=== PATIENT | female | born 1980 | race Caucasian/White ===

== ENCOUNTER 2016-09-05 22:55 | Outpatient (CLI) | payer MEDICAID ==
[~2016-09-05] VITALS: Ht 147.3 cm; Wt 85.5 kg
[~2016-09-05 22:55] MED LIST: ACET325T33 PO; CYCL-319 PO; HYDR-3498 PO; METH500T PO; NAPR-260 PO; NAPR-688 PO
[2016-09-05 23:10] VITALS: BP 135/65; PULSE 68; RESP 22
[2016-09-05] MEDS ORDERED: LACTATED RINGER'S 1,000 ML IV SCH (23:15)
[2016-09-05 23:19] VITALS: Ht 147.3 cm; Wt 85.5 kg
[2016-09-05] MEDS ORDERED: ACET500T98 PO (23:19)
[2016-09-05] MEDS ORDERED: CALC600T5 PO (23:19)
[2016-09-05] MEDS ORDERED: PREN1TAB79 PO (23:19)
[2016-09-05] MEDS ORDERED: LACTATED RINGER'S 1,000 ML IV ONE (23:30)
[2016-09-05] MEDS ORDERED: BUTORPHANOL 2 MG INJ IV ONE (23:30)
--- NOTE | 2016-09-05 23:47 | PN ---
Triage Information Date/Time 09/05/2016 Weeks of Gestation 38+ : 4 Para: 3 Diabetes: none Hypertention: none Additional information 36-year-old female complaining of L shoulder pain 2 days which apparently was being relieved by Tylenol Pain spreads itself to right upper torso Denies shortness of breath and palpitations Objective See the admitting nursing Heart Rate: 150's Heart Rate Comments Reactive Contractions: None Exam %50/fingertip/-3 Results/Medications Medications Current Medications Lactated Ringer's 1,000 ml @ 125 mls/hr Q8H IV ; Start 09/05/16 at 23:15 Lactated Ringer's (Lr) 1,000 ml @ 1,000 mls/hr Q1H ONCE IV ; Start 09/05/16 at 23:30; Stop 09/06/16 at 00:29 Imaging Results Biophysical profile down results uncertain at this point Assessment/Plan Left upper shoulder pain possibly because of muscle cramps 38 weeks gestation Not in labor If has relief of pain after Stadol injection we will follow as outpatient ANTONI CUNNINGHAM MD Sep 05, 2016 23:47
[2016-09-06 00:02] LABS: ADD SCAN DIFF NO
[2016-09-06 00:05] LABS: BASOPHILS % 0.3 % (0.0-2.0); EOSINOPHILS # 0.1 10^3/ul (0.0-0.5); EOSINOPHILS % 0.7 % (0.0-7.0); HEMATOCRIT 34.3 % (37.0-47.0); HEMOGLOBIN 11.7 g/dl (12.0-16.0); LYMPHOCYTES # 1.3 10^3/ul (0.8-2.9); MEAN CORPUSCULAR HEMOGLOBIN 30.7 pg (29.0-33.0); MEAN CORPUSCULAR HGB CONC 34.1 g/dl (32.0-37.0); MEAN PLATELET VOLUME 12.6 fl (7.4-10.4); MONOCYTE # 0.4 10^3/ul (0.3-0.9); MONOCYTES % 5.6 % (0.0-11.0); NEUTROPHIL # 5.6 10^3/ul (1.6-7.5); NEUTROPHILS % 75.7 % (39.0-77.0); PLATELET COUNT 176 10^3/UL (140-415); RED BLOOD COUNT 3.81 10^6/ul (4.20-5.40); WHITE BLOOD COUNT 7.4 10^3/ul (4.8-10.8)
--- NOTE | 2016-09-06 01:07 | RADRPT ---
PROCEDURE: ULTRASOUND BIOPHYSICAL PROFILE CLINICAL INDICATION: 36-year-old female with contractions for viability. TECHNIQUE: Multiple sonographic images were obtained in order to perform a biophysical profile The images were reviewed on a PACS workstation. COMPARISON: None. FINDINGS: There is a single viable intrauterine gestation. There is a breech presentation. Cardiac activity i s present at 166 beats per minute. The placenta is fundal. The results of the biophysical profile a re as follows: breathing movement = 2/2 Gross body movement = 2/2 tone = 2/2 Qualitative amniotic fluid volume = 2/2 Amniotic fluid index equals 11.9 cm. This yields a biophysical profile score of 8/8. IMPRESSION: Biophysical profile score is 8/8. .Bao Howell MD, Date Time Electronically viewed and signed by .Bao Howell MD, on 09/06/2016 01:07 .Jose
== END 2016-09-06 07:17 | disposition home or self-care (01) ==
LOC: OBT 22:55 → L-D 22:59 → OBT 09-06 07:17
PROVIDERS: ATTEND Obstetrics & Gynecology
DX: O26.893 Other specified pregnancy related conditions, third trimester (principal); Z3A.30 30 weeks gestation of pregnancy; M25.512 Pain in left shoulder
CPT/HCPCS: 36415; 76818; 85025; 96361; 96374; J0595; J7120; Z7500; G0463

== ENCOUNTER 2016-09-06 07:21 | Emergency (ER) | END 2016-09-06 10:23 | disposition left against medical advice (07) | DX: O99.89 Other specified diseases and conditions complicating pregnancy, childbirth and the puerperium (principal); M25.512 Pain in left shoulder; R07.89 Other chest pain; Z3A.38 38 weeks gestation of pregnancy | CPT/HCPCS: 93005; 93970; Z7502; Z7610 ==

== ENCOUNTER 2016-09-16 09:31 | Inpatient (IN) | payer MEDICAID ==
[~2016-09-16] VITALS: Ht 144.8 cm; Wt 83.5 kg
[~2016-09-16 09:31] MED LIST changes: -ACET325T33 PO; +ACET500T98 PO; +CALC600T5 PO; -CYCL-319 PO; -HYDR-3498 PO; -METH500T PO; -NAPR-260 PO; -NAPR-688 PO; +PREN1TAB79 PO
[2016-09-16 10:03] VITALS: Ht 144.8 cm; Wt 83.5 kg
[2016-09-16 10:04] VITALS: BP 111/58; PULSE 72; RESP 18
[2016-09-16] MEDS ORDERED: OXYTOCIN 30 UNITS/LR 500 ML IV PRN (11:30)
[2016-09-16] MEDS ORDERED: METHYLERGONOVINE 0.2 MG INJ IM PRN (11:30)
[2016-09-16] MEDS ORDERED: MINERAL OIL LIGHT 10 ML VIAL TOP PRN (11:30)
[2016-09-16] MEDS ORDERED: OXYTOCIN 30 UNITS/LR 500 ML IV SCH ×3 (11:30)
[2016-09-16] MEDS ORDERED: BUTORPHANOL 2 MG INJ IV PRN ×2 (11:30)
[2016-09-16] MEDS ORDERED: AMPICILLIN 2 GM/NS (PMX) 100 ML IVPB ONE (11:30)
[2016-09-16] MEDS ORDERED: LIDOCAINE 1% (MPF) 30 ML INJ INJ PRN (11:30)
[2016-09-16] MEDS ORDERED: IBUPROFEN 600 MG TAB PO PRN (11:30)
[2016-09-16] MEDS ORDERED: MISOPROSTOL 200 MCG TAB PR PRN (11:30)
[2016-09-16] MEDS ORDERED: CARBOPROST 250 MCG INJ IM PRN (11:30)
[2016-09-16] MEDS ORDERED: LACTATED RINGER'S 1,000 ML IV PRN (12:00)
--- NOTE | 2016-09-16 12:01 | RADRPT ---
PROCEDURE: OB ultrasound CLINICAL INDICATION: Spontaneous structure membrane TECHNIQUE: Multiple transverse and longitudinal OB images of the pelvis were obtained. The images were reviewed on a high-resolution PACS workstation. COMPARISON: 09/05/2016 FINDINGS: A single live intrauterine is seen. The presentation is vertex. The placenta is grade 2 a nd fundal in location. No evidence of placenta abruption or previa is seen. The heart rate is 146 beats per minute. The amniotic fluid index is 6.7 cm. movement 2 tone 2 breathing 0 Amniotic fluid 2 IMPRESSION: Biophysical profile of 6 out of 8 as no breathing is identified. Close clinical observation a short interval follow-up is suggested. Results were discussed with the patient's nurse Nayana Sagastume at 09/16/2016 12:00:51 PM RPTAT: HPNM Physician Chris Date Time Electronically viewed and signed by Physician Chris on 09/16/2016 12:01 /
[2016-09-16] MEDS: LACTATED RINGER'S 1,000 ML IV SCH ×4 (12:51→22:51)
[2016-09-16 13:02] LABS: BASOPHILS % 0.1 % (0.0-2.0); EOSINOPHILS % 0.5 % (0.0-7.0); HEMATOCRIT 37.1 % (37.0-47.0); HEMOGLOBIN 12.8 g/dl (12.0-16.0); LYMPHOCYTES # 1.2 10^3/ul (0.8-2.9); LYMPHOCYTES % 14.9 % (15.0-51.0); MEAN CORPUSCULAR HGB CONC 34.5 g/dl (32.0-37.0); MEAN CORPUSCULAR VOLUME 89.8 fl (82.0-101.0); MEAN PLATELET VOLUME 12.8 fl (7.4-10.4); MONOCYTE # 0.3 10^3/ul (0.3-0.9); MONOCYTES % 3.7 % (0.0-11.0); NEUTROPHIL # 6.3 10^3/ul (1.6-7.5); NEUTROPHILS % 80.4 % (39.0-77.0); PLATELET COUNT 177 10^3/UL (140-415); RED BLOOD COUNT 4.13 10^6/ul (4.20-5.40); RED CELL DISTRIBUTION WIDTH 14.9 % (11.5-14.5); WHITE BLOOD COUNT 7.8 10^3/ul (4.8-10.8)
[2016-09-16 13:17] LABS: INR 0.88; PROTIME 11.9 Sec (12.2-14.2); PT RATIO 0.9
[2016-09-16 13:18] LABS: PARTIAL THROMBOPLASTIN TIME 29.2 Sec (25.0-35.0)
[2016-09-16] MEDS: AMPICILLIN 1 GM/NS (PMX) 50 ML IVPB SCH ×3 (17:02→20:56)
--- NOTE | 2016-09-16 18:30 | HP ---
Date/Time of Note Date/Time of Note DATE: 09/16/16 TIME: 18:27 OB - History Hx of Present Free Text/Dictation Complaining of spontaneous rupture of membrane at 39 weeks and 6 days Chief Complaint: Spontaneous rupture of membrane and uterine contractions Estimated Due Date: Sep 17, 2016 : 4 Para: 3 Care: Good Care Ultrasounds: Normal mid trimester US Obstetrical Complications: None Medical Complications: None Past Family/Social History * Past Medical, Surgical, Family and Obstetric Histories reviewed from chart. Blood Type: O+ Rubella: immune RPR/VDRL: Negative GBS Status: Unknown HBsAG: Negative OB Admission Exam Vital Signs Vital Signs Vital Signs Date Time Temp Pulse Resp B/P Pulse Ox O2 Delivery O2 Flow Rate FiO2 09/16/16 10:04 98.6 72 18 111/58 Room Air Physical Exam HEENT: WNL Heart: Rhythm Normal Lungs: Clear, Equal Abdomen: WNL Extremities: Normal Reflexes: Normal Cervical Dilatation: 1cm Effacement: 25% Station: -3 Membranes: Ruptured Amniotic Fluid: Clear Heart Rate: 140's Accelerations: Accelerations Present Decelerations: No Decelerations Varibility: Marked Contractions on Admission: >10 Minutes Apart Date/Time Contractions Began: September 16, 2016 at 0200 a.m. Frequency of Contractions: Every 5-10 minute Duration: Over 45 seconds Intensity: Mild Last 72 hours Lab Results CBC & BMP 09/16/16 12:40 OB Assessment/Plan Reason for admission: rupture of membranes Other Assessment: Term gestation Other plan: Augment labor with Pitocin ANTONI CUNNINGHAM MD Sep 16, 2016 18:30
[2016-09-16] MEDS ORDERED: FENTAnyl 2MCG/ML-ROPIV 0.2% 100 ML ONE (21:51)
[2016-09-16] MEDS ORDERED: NALOXONE (0.4 MG/ML) INJ IV PRN (23:00)
[2016-09-16] MEDS ORDERED: FENTAnyl 2MCG/ML-ROPIV 0.2% 100 ML BAG EPI SCH (23:00)
--- NOTE | 2016-09-17 00:07 | LDN ---
Date/Time of Note Date/Time of Note DATE: 09/17/16 TIME: 00:05 Delivery Summary Normal spontaneous vaginal delivery of a viable over intact perineum Weeks of Gestation 39+ Placenta Delivered: Spontaneously, Intact & Complete Meconium: none Episiotomy: No Perineal laceration: 0 Anesthesia type: Epidural Estimated blood loss: 300 Sponge & Needle done & correct: Yes All needle counts correct: Yes Any foreign bodies felt in the: No Problems: Infant Delivery Information Sex Sex: female Apgars 1 Minute: 4 5 Minute: 8 10 Minute: 9 Suctioning Nose & mouth suctioned at ashwini: Yes Delee suction performed: No Umbilical Cord Umbilical cord with: 3 Vessels Cord presentations: no nuchal cord Cord Blood was obtained: Yes Mother & Baby Disposition Disposition Mom & Baby to Maternity; Good: Yes (Mother and baby were recovered in good condition) Mom transferred to: Other (Maternity) Baby to NICU: No ANTONI CUNNINGHAM MD Sep 17, 2016 00:07
[2016-09-17] MEDS: AMPICILLIN 1 GM/NS (PMX) 50 ML IVPB SCH (01:00)
[2016-09-17] MEDS: LACTATED RINGER'S 1,000 ML IV* SCH ×2 (01:51→04:48)
[2016-09-17 02:00] VITALS: BP 115/62; PULSE 70; RESP 20
[2016-09-17] MEDS ORDERED: BENZOCAINE 20% 56 ML SPRAY TOP PRN (02:00)
[2016-09-17] MEDS ORDERED: OXYTOCIN 30 UNITS/LR 500 ML IV PRN (02:00)
[2016-09-17] MEDS ORDERED: DIBUCAINE 1% 30 GM OINT PR PRN (02:00)
[2016-09-17] MEDS ORDERED: MISOPROSTOL 200 MCG TAB PR PRN (02:00)
[2016-09-17] MEDS ORDERED: CARBOPROST 250 MCG INJ IM PRN (02:00)
[2016-09-17] MEDS ORDERED: LANOLIN 7 GM TUBE TOP PRN (02:00)
[2016-09-17] MEDS ORDERED: METHYLERGONOVINE 0.2 MG INJ IM PRN (02:00)
[2016-09-17] MEDS ORDERED: ZOLPIDEM 5 MG TAB PO PRN (02:00)
[2016-09-17] MEDS ORDERED: ACETAMINOPHEN/CODEINE #3 TAB PO PRN ×2 (02:00)
[2016-09-17] MEDS ORDERED: WITCH HAZEL/GLYCERIN PAD PR PRN (02:00)
[2016-09-17 03:30] VITALS: BP 121/63; PULSE 65
[2016-09-17] MEDS: IBUPROFEN 600 MG TAB PO SCH ×3 (05:31→17:59)
[2016-09-17] MEDS: CEPHALEXIN 500 MG CAP PO SCH ×3 (05:31→17:59)
[2016-09-17 08:55] VITALS: BP 111/56; PULSE 59; RESP 18
[2016-09-17] MEDS: MAGNESIUM HYDROXIDE 30ML CUP PO SCH ×2 (09:21→20:53)
[2016-09-17] MEDS: SENNA/DOCUSATE NA (8.6MG/50MG) TAB PO SCH ×2 (09:21→20:53)
[2016-09-17] MEDS ORDERED: LACTATED RINGER'S 1,000 ML IV PRN (12:00)
--- NOTE | 2016-09-17 12:15 | DS ---
Date/Time of Note Date/Time of Note Home next day DATE: 09/17/16 TIME: 12:14 Obstetrical Discharge Record Final Diagnosis Final Diagnosis: Term delivered Other Final Diagnosis Status post vaginal delivery Vaginal Delivery Obstetrical Delivery: Spontaneous Complications Augmentation: Yes Condition on Discharge Physical Assessment Last Vitals: See nurse's notes Voiding: Yes Bowel Movement: Yes Breast: Soft, non-tender, Filling Fundus: Firm Abdomen and Incision: Soft bowel sounds present Episiotomy: Not applicable Calf Tenderness: No Patient Condition: Good ANTONI CUNNINGHAM MD Sep 17, 2016 12:15
[2016-09-17] MEDS ORDERED: IBUP-1542 PO (12:16)
--- NOTE | 2016-09-17 12:16 | PD.PPDC ---
[employer] HEL[employer] Discharge Instruction Provider Information Physician Information 36-year-old female had vaginal delivery Diagnosis Final Diagnosis: Status post vaginal delivery Condition Patient Condition: Good Diet Diet: Resume Regular Diet Activity/Restrictions Activity: Normal Activity May Shower Restrictions: Nothing in the Vagina Return to Work or School: Nov 06, 2016 Follow-up Follow-up with Physician: 4, Week/Weeks (In clinic) Return to clinic for OB Instructions: Breast Tenderness Depression ANTONI CUNNINGHAM MD Sep 17, 2016 12:16
[2016-09-17 12:50] VITALS: BP 117/60; PULSE 57; RESP 17
[2016-09-17 13:49] LABS: BASOPHILS % 0.2 % (0.0-2.0); EOSINOPHILS % 0.5 % (0.0-7.0); HEMOGLOBIN 11.4 g/dl (12.0-16.0); LYMPHOCYTES # 1.1 10^3/ul (0.8-2.9); MEAN CORPUSCULAR HEMOGLOBIN 31.6 pg (29.0-33.0); MEAN CORPUSCULAR HGB CONC 34.5 g/dl (32.0-37.0); MEAN CORPUSCULAR VOLUME 91.4 fl (82.0-101.0); MEAN PLATELET VOLUME 12.6 fl (7.4-10.4); MONOCYTE # 0.3 10^3/ul (0.3-0.9); MONOCYTES % 3.9 % (0.0-11.0); NEUTROPHIL # 7.1 10^3/ul (1.6-7.5); NEUTROPHILS % 82.1 % (39.0-77.0); PLATELET COUNT 159 10^3/UL (140-415); RED BLOOD COUNT 3.61 10^6/ul (4.20-5.40); RED CELL DISTRIBUTION WIDTH 15.3 % (11.5-14.5); WHITE BLOOD COUNT 8.7 10^3/ul (4.8-10.8)
[2016-09-17 16:40] VITALS: BP 107/59; PULSE 67; RESP 17
[2016-09-17 20:45] VITALS: BP 114/58; PULSE 82
[2016-09-18] MEDS: IBUPROFEN 600 MG TAB PO SCH ×4 (00:16→17:27)
[2016-09-18] MEDS: CEPHALEXIN 500 MG CAP PO SCH ×4 (00:17→17:27)
[2016-09-18 04:45] VITALS: BP 108/70; PULSE 59; RESP 18
[2016-09-18 08:00] VITALS: BP 103/55; PULSE 75; RESP 18
[2016-09-18 08:14] LABS: BASOPHILS % 0.3 % (0.0-2.0); EOSINOPHILS # 0.1 10^3/ul (0.0-0.5); EOSINOPHILS % 1.1 % (0.0-7.0); HEMOGLOBIN 10.4 g/dl (12.0-16.0); LYMPHOCYTES # 1.4 10^3/ul (0.8-2.9); LYMPHOCYTES % 21.9 % (15.0-51.0); MEAN CORPUSCULAR HGB CONC 33.5 g/dl (32.0-37.0); MEAN CORPUSCULAR VOLUME 92.3 fl (82.0-101.0); MEAN PLATELET VOLUME 12.6 fl (7.4-10.4); MONOCYTE # 0.3 10^3/ul (0.3-0.9); MONOCYTES % 4.8 % (0.0-11.0); NEUTROPHIL # 4.6 10^3/ul (1.6-7.5); NEUTROPHILS % 71.4 % (39.0-77.0); PLATELET COUNT 144 10^3/UL (140-415); RED BLOOD COUNT 3.36 10^6/ul (4.20-5.40); RED CELL DISTRIBUTION WIDTH 15.5 % (11.5-14.5); WHITE BLOOD COUNT 6.5 10^3/ul (4.8-10.8)
[2016-09-18] MEDS: MAGNESIUM HYDROXIDE 30ML CUP PO SCH (09:00)
[2016-09-18] MEDS: SENNA/DOCUSATE NA (8.6MG/50MG) TAB PO SCH (09:00)
[2016-09-18 16:12] VITALS: BP 113/70; PULSE 79; RESP 18
[2016-09-18 19:53] VITALS: BP 120/61; PULSE 71; RESP 18
[2016-09-19] MEDS ORDERED: MEASLES,MUMPS,RUBELLA VACCINE INJ SC* ONE (09:00)
[2016-09-19] MEDS ORDERED: DIPHTH/TET/ACEL PERTUSS (ADULT) 0.5 ML VIAL IM* ONE (09:00)
[2016-09-19] MEDS ORDERED: VARICELLA VACCINE LIVE/PF 1,350 UNIT/0.5 ML ML SC* ONE (09:00)
[2016-09-19 12:56] LABS: RUBELLA ANTIBODY - IGG 2.92 index
== END 2016-09-18 20:15 | disposition home or self-care (01) | DRG 775 ==
LOC: L-D 09:31 → OBT 09:31 → L-D 11:20 → PP1 09-17 02:08
PROVIDERS: ADMIT Obstetrics & Gynecology; ATTEND Obstetrics & Gynecology
PROC: 10E0XZZ Delivery of Products of Conception, External Approach (ICD-10-PCS; principal; 2016-09-17)
DX: O80 Encounter for full-term uncomplicated delivery (principal); Z37.0 Single live birth; Z3A.39 39 weeks gestation of pregnancy
CPT/HCPCS: 62319; 76818; 84112; 85025; 85610; 85730; 86592; 86703; 86762; 86900; 86901; 87340; 99464; G0463; J0290; J2590; J3010; J7120